=== PATIENT | male | born 1970 | race African-American/Black ===

== ENCOUNTER 2021-11-10 08:03 | Observation (INO) ==
[2021-11-10] MEDS ORDERED: Nitroglycerin 0.4 MG TAB.SUBL SL PRN ×2 (08:28→10:50)
[2021-11-10 08:49] LABS: Basophils % 0.7 %; Eosinophils # 0.1 K/mcL (0.0-0.6); Eosinophils % 1.3 %; Hematocrit 45.7 % (37.5-50.1); Hemoglobin 14.3 g/dL (12.9-16.9); Immature Granulocytes % 0.2 % (0-4); Lymphocytes # 2.3 K/mcL (0.6-4.6); Lymphocytes % 49.6 %; Mean Corpuscular HGB Conc 31.3 g/dL (31.6-35.5); Mean Corpuscular Hemoglobin 26.5 pg (28.0-33.3); Mean Corpuscular Volume 84.6 fL (83.0-100.0); Mean Platelet Volume 11.6 fL (9.4-12.4); Monocytes # 0.4 K/mcL (0.0-1.3); Monocytes % 8.7 %; Neutrophils # 1.8 K/mcL (1.6-8.9); Platelet Count 161 K/mcL (140-400); Red Cell Distribution Width 12.9 % (11.5-14.5); Segmented Neutrophils % 39.5 %; White Blood Count 4.6 K/mcL (4.3-11.1)
[2021-11-10 09:56] LABS: BUN/Creatinine Ratio 9 (6-26); Blood Urea Nitrogen 12 mg/dL (6-20); Carbon Dioxide 28 mEq/L (23-29); Chloride 101 mEq/L (98-107); Glucose 337 mg/dL (70-105); Osmolality,Calculated 293 (280-300); Potassium 3.7 mEq/L (3.5-5.1); Sodium 135 mEq/L (136-145); Troponin I < 0.03 ng/mL (< 0.04); eGFR For African Americans > 60 (> 60); eGFR For Non-African Americans > 60 (> 60)
[2021-11-10] MEDS ORDERED: Naloxone 0.4 MG/ML INJ IVP PRN (10:45)
[2021-11-10] MEDS ORDERED: Acetaminophen 325 MG TABLET PO PRN (10:45)
[2021-11-10] MEDS ORDERED: Ondansetron 4 MG/2 ML VIAL IVP PRN (10:45)
[2021-11-10] MEDS ORDERED: Dextrose Gel 15 GM/37.5 ML TUBE PO PRN ×2 (10:50)
[2021-11-10] MEDS ORDERED: *HR* Dextrose 50 % in Water (Syg) 50 ML SYRINGE IVP PRN (10:50)
[2021-11-10] MEDS ORDERED: D5% in Water 1,000 ML IVC PRN (10:50)
[2021-11-10] MEDS ORDERED: Perflutren Lipid Microsphere 1.3 ML in 0.9 % Sodium Chloride 8.7 ML IVP PRN (10:52)
[2021-11-10] MEDS ORDERED: lisinopriL 10 MG TABLET PO SCH (11:15)
[2021-11-10 11:19] LABS: Magnesium 1.7 mg/dL (1.6-2.6)
[2021-11-10 11:55] LABS: Estimated Average Glucose 237 mg/dl; Hemoglobin A1C 9.9 %
[2021-11-10] MEDS: Aspirin 81 MG TAB.CHEW PO SCH (11:56)
[2021-11-10] MEDS: Insulin LISPRO 300 UNITS/3 ML VIAL SUBQ SCH ×2 (11:56→18:06)
[2021-11-10] MEDS: *HR* Heparin 5,000 UNIT/ML VIAL SQ SCH ×2 (16:57→19:53)
[2021-11-10] MEDS: Loratadine 10 MG TABLET PO SCH (20:10)
[2021-11-10] MEDS ORDERED: Insulin DETEMIR 100 UNIT/ML X5UNITS SUBQ SCH (21:00)
[2021-11-10] MEDS ORDERED: Insulin LISPRO 300 UNITS/3 ML VIAL SUBQ SCH (21:00)
[2021-11-10 22:56] VITALS: O2SAT 98
[2021-11-11] MEDS: *HR* Heparin 5,000 UNIT/ML VIAL SQ SCH (03:31)
[2021-11-11 03:44] VITALS: TEMP 97.6
[2021-11-11 04:58] LABS: Basophils # 0.1 K/mcL (0.0-0.2); Basophils % 1.2 %; Eosinophils # 0.1 K/mcL (0.0-0.6); Eosinophils % 1.8 %; Hematocrit 43.4 % (37.5-50.1); Hemoglobin 13.7 g/dL (12.9-16.9); Immature Granulocytes % 0.5 % (0-4); Lymphocytes # 2.4 K/mcL (0.6-4.6); Lymphocytes % 55.4 %; Mean Corpuscular HGB Conc 31.6 g/dL (31.6-35.5); Mean Corpuscular Hemoglobin 26.1 pg (28.0-33.3); Mean Corpuscular Volume 82.7 fL (83.0-100.0); Mean Platelet Volume 11.5 fL (9.4-12.4); Monocytes # 0.4 K/mcL (0.0-1.3); Monocytes % 9.7 %; Neutrophils # 1.4 K/mcL (1.6-8.9); Platelet Count 170 K/mcL (140-400); Red Blood Count 5.25 M/mcL (4.19-5.50); Red Cell Distribution Width 12.8 % (11.5-14.5); Segmented Neutrophils % 31.4 %; White Blood Count 4.3 K/mcL (4.3-11.1)
[2021-11-11 05:25] LABS: Alanine Aminotransferase 19 Units/L (7-52); Albumin 3.7 g/dL (3.5-5.7); Albumin/Globulin Ratio 1.4 (1.1-2.2); Alkaline Phosphatase 65 Units/L (34-104); Aspartate Amino Transferase 17 Units/L (13-39); BUN/Creatinine Ratio 10 (6-26); Bilirubin,Total 0.5 mg/dL (0.3-1.0); Blood Urea Nitrogen 11 mg/dL (6-20); Calcium 8.6 mg/dL (8.6-10.3); Carbon Dioxide 26 mEq/L (23-29); Chloride 103 mEq/L (98-107); Chol/HDL Ratio 3.9 (0-4.9); Cholesterol 181 mg/dL (< 200); Globulin 2.7 g/dL (2.4-3.5); Glucose 182 mg/dL (70-105); HDL Cholesterol 47 mg/dL (40-59); LDL Cholesterol,Calculated 109 mg/dL (< 100); Osmolality,Calculated 286 (280-300); Potassium 3.9 mEq/L (3.5-5.1); Sodium 136 mEq/L (136-145); Total Protein 6.4 g/dL (6.4-8.9); Triglycerides 124 mg/dL (< 150); eGFR For African Americans > 60 (> 60); eGFR For Non-African Americans > 60 (> 60)
[2021-11-11] MEDS ORDERED: Regadenoson 0.4 MG/5 ML SYRINGE IVP ONE (06:06)
[2021-11-11] MEDS: Insulin LISPRO 300 UNITS/3 ML VIAL SUBQ SCH (07:16)
[2021-11-11] MEDS ORDERED: Aspirin 81 MG TAB.CHEW PO SCH (09:00)
[2021-11-11] MEDS: Loratadine 10 MG TABLET PO SCH (10:05)
[2021-11-11] MEDS: Aspirin 81 MG TAB.CHEW PO SCH (10:05)
[2021-11-11 10:08] VITALS: BP 157/103; PULSE 72
== END 2021-11-11 11:48 | disposition home or self-care (01) ==
LOC: 3BNU 08:03 → EMEROOARM 08:03 → SUATTDRO 14:43 → 3BNU 16:05
PROVIDERS: ADMIT General Practice; ATTEND Registered Nurse